=== PATIENT | male | born 1985 | race Two or more races ===

== ENCOUNTER → 2018-10-02 | Outpatient (CLI) | payer OTHER ==
--- NOTE | 2018-10-02 10:12 | RADIOLOGY IMAGING REPORT ---
FACILITY: PATIENT NAME: Arnold White : 1985 MR: [id number] V: [id number] EXAM DATE: ORDERING PHYSICIAN: LUCAS HAYDEN TECHNOLOGIST: Location: [facility] [place] Patient: Arnold White : 1985 Visit/Account:[id number] Date of Sevice: 10/02/2018 CHEST SINGLE AP HISTORY: Positive PPD COMPARISON: None FINDINGS: Cardiomediastinal contours: Normal Lungs and pleura: Normal Bones/soft tissues: Normal Other findings: None significant IMPRESSION: 1. Normal chest. No evidence of active tuberculosis. Report Dictated By: Bronson Stewart MD at 10/02/2018 10:05 AM Report E-Signed By: Bronson Stewart MD at 10/02/2018 10:06 AM WSN:[email or web address]
== END ==
LOC: RAD 09:21
PROVIDERS: ATTEND Family Medicine
DX: Z11.1 Encounter for screening for respiratory tuberculosis (principal)
CPT/HCPCS: 71045